=== PATIENT | female | born 1990 | race Caucasian/White ===

== ENCOUNTER 2016-12-14 04:05 | Emergency (ER) | payer OTHER ==
[~2016-12-14] VITALS: Ht 165.1 cm; Wt 99.8 kg
[~2016-12-14 04:05] MED LIST: BENADRYL25 MG PO; NORFLEX100 MG PO; PEPCID20 MG PO; PREDNISONE 20 M20 MG PO; ULTRAM 50MG TAB50 MG PO
[2016-12-14] MEDS ORDERED: VYVANSE30 MG PO (04:28)
[2016-12-14 04:35] LABS: URINE BILIRUBIN NEGATIVE (Negative); URINE BLOOD NEGATIVE (Negative); URINE COLOR YELLOW; URINE GLUCOSE-RANDOM* NEGATIVE (Negative); URINE KETONES NEGATIVE (Negative); URINE LEUKOCYTES-REFLEX NEGATIVE (Negative); URINE PROTEIN (DIPSTICK) NEGATIVE (Negative); URINE UROBILINOGEN 0.2 E.U./dl (0.2-1.0)
[2016-12-14 04:47] LABS: EOSINOPHILS 1.1 % (0.0-3.0); HEMOGLOBIN 12.8 gm/dL (12.0-15.0); LYMPHOCYTES 23.2 % (24.0-44.0); MCH 27.5 pg (26.0-34.0); MCHC 33.6 g/dL (28.0-37.0); MCV 81.8 fL (80.0-100.0); MONOCYTES 5.4 % (1.0-8.0); PLATELET COUNT 313 thou/uL (150-400); POLYS 69.3 % (36.0-66.0); RBC 4.64 mil/uL (4.20-5.00); RDW 14.4 % (10.5-14.5); WBC 10.1 thou/uL (4.0-11.0)
[2016-12-14 04:53] LABS: MANUAL DIFF NO
[2016-12-14 04:56] LABS: CALCIUM 9.2 mg/dL (8.5-10.1); CREATININE 0.9 mg/dL (0.6-1.0); POTASSIUM 3.7 mmol/L (3.5-5.1)
[2016-12-14 05:01] LABS: ALBUMIN 3.9 g/dL (3.4-5.0); TOTAL BILIRUBIN 0.4 mg/dL (<0.1-1.0); TOTAL PROTEIN 7.7 g/dL (6.4-8.2)
[2016-12-14] MEDS ORDERED: BUTALB-APAP-CA1 EACH PO (05:56)
[2016-12-14 06:23] VITALS: BP 129/59
== END 2016-12-14 06:35 | disposition home or self-care (01) ==
LOC: ER 04:05
PROVIDERS: Emergency Medicine
DX: H40.213 Acute angle-closure glaucoma, bilateral (principal); G44.209 Tension-type headache, unspecified, not intractable; Z88.5 Allergy status to narcotic agent; Z88.1 Allergy status to other antibiotic agents